=== PATIENT | male | born 2000 ===

== ENCOUNTER 2019-08-20 19:44 | Emergency (ER) | payer OTHER ==
[2019-08-20 19:53] VITALS: BP 130/81
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
[2019-08-20] MEDS ORDERED: IBUPROFEN 800 MG TAB PO ONE (22:12)
== END 2019-08-20 22:49 | disposition home or self-care (01) ==
LOC: ED 19:44
DX: S16.1XXA Strain of muscle, fascia and tendon at neck level, initial encounter (principal); Z79.899 Other long term (current) drug therapy; V49.49XA Driver injured in collision with other motor vehicles in traffic accident, initial encounter; Y93.89 Activity, other specified; Y92.89 Other specified places as the place of occurrence of the external cause; Y99.8 Other external cause status
CPT/HCPCS: 72040